=== PATIENT | male | born 1995 | race Caucasian/White ===

== ENCOUNTER 2019-01-04 12:45 | Emergency (ER) | payer SELFPAY ==
[~2019-01-04] VITALS: Ht 154.9 cm; Wt 63.0 kg
[2019-01-04] MEDS ORDERED: LIDOCAINE HCL/EPINEPHRINE 1%-EPI 1:100,000 20 ML VIAL ONE (12:56)
[2019-01-04 13:57] LABS: BASOPHILS % 0.3 % (0.0-2.0); EOSINOPHILS % 8.4 % (0.0-5.0); HEMATOCRIT. 45.8 % (42.0-52.0); HEMOGLOBIN. 16.2 g/dL (14.0-18.0); LYMPHOCYTES % 21.9 % (20.0-50.0); MEAN CORPUSCULAR HEMOGLOBIN 33.2 pg (28.0-32.0); MEAN CORPUSCULAR VOLUME 93.8 fL (80.0-94.0); MEAN PLATELET VOLUME 10.6 fl (7.4-10.4); MONOCYTES % 6.2 % (2.0-8.0); NEUTROPHILS % 63.2 % (40.0-76.0); PLATELET 223 x1000/uL (130-400); RED BLOOD CELL COUNT 4.88 mill/uL (4.7-6.1)
[2019-01-04 14:05] LABS: CHLORIDE 107 mEq/L (98-107)
[2019-01-04 14:07] LABS: INR 1.1; PROTHROMBIN TIME 11.1 sec (9.6-11.0)
[2019-01-04] MEDS ORDERED: IOHEXOL-350 100 ML BOTTLE ONE (15:11)
[2019-01-04] MEDS ORDERED: ONDANSETRON HCL 4MG/2ML INJ IV ONE (17:15)
[2019-01-04] MEDS ORDERED: MORPHINE SULFATE 4 MG/ML CPJ (NOT FOR IM USE) IV ONE (17:15)
[2019-01-04 19:31] VITALS: BP 110/77
== END 2019-01-04 19:41 | disposition short-term general hospital (02) ==
LOC: ER 12:45
DX: S81.011A Laceration without foreign body, right knee, initial encounter (principal); R58 Hemorrhage, not elsewhere classified; D72.829 Elevated white blood cell count, unspecified; F17.200 Nicotine dependence, unspecified, uncomplicated; W25.XXXA Contact with sharp glass, initial encounter; Y93.89 Activity, other specified; Y92.89 Other specified places as the place of occurrence of the external cause; Y99.8 Other external cause status
CPT/HCPCS: 36415; 71045; 73706; 80048; 85025; 85610; 86850; 86900; 86901; 93005; 96374; 96375; 99285; J2270; J2405; J3490; Q9967